=== PATIENT | female | born 1965 | race Caucasian/White ===

== ENCOUNTER 2018-06-02 10:55 | Emergency (ER) | payer BC ==
--- OUTSIDE RECORDS SUMMARY | 2018-06-02 11:18 | XMS REPORT | Continuity of Care Document ---
:1965 External Reference #:[id number] Author Name BerryNicol perrin Care Team Providers Name Role Phone Yonis Ellsworth MD Primary Care Physician Unavailable Payers Date Identification Numbers Payment Provider Subscriber Policy Number: [id number] [employer] Riya Veloz PayID: [id number] [address] [address] [place] [address] Advance Directives Description No Information Available Problems Description No Information Family History Date Family Member(s) Observation Comments General Asthma Father Gout Father Coronary Artery Disease (CAD) Father GA Mother due to brain bleed () Mother Arthritis Mother Arthritis, Osteo Mother Hyperthyroidism Mother Stroke Mother GA Siblings 3 3 sisters, arthritis, endometriosis, cerebral palsy Social History Type Date Description Comments Sex Unknown Marital Status Single Lives With Daughters Occupation Currently Working [employer] ETOH Use Occasionally consumes alcohol Tobacco Use Start: Unknown Patient is a former End: Unknown smoker Recreational Drug Use Denies Drug Use Smoking Status Reviewed: 05/14/18 Patient is a former smoker Exercise Type/Frequency Exercises sporadically walking Allergies, Adverse Reactions, Alerts Date Description Reaction Status Severity Comments 12/15/2017 NSAIDS Active facial swelling 12/15/2017 Depo-Provera Active hives 12/15/2017 Aspirin Active facial swelling Medications Medication Date Status Form Strength Qnty SIG Indications Ordering Provider Heel Liners 02/13/ Active Pads Please 2017 provide heel Effie, and ankle M.D. support Tizanidine HCL 02/13/ Active Capsules 2mg 30cap 1 or 2 cap by 2017 s mouth as Effie, needed at M.D. night for spasms [id number] 12/19/ Active Chewtabs 1mg 90uni take one 2017 ts capsule/table Effie, t daily M.DPeggy sublingually Advair Diskus / Active Aerosol 100-50mcg inhale one Unknown 0000 /Dose puff by mouth twice a day Venlafaxine HCL / Active Caps ER 75mg 1 by mouth Unknown ER 0000 24HR every day Butalbital/Acet / Active Capsules 50-325-40 take 1 Unknown aminophen/Caffe 0000 mg capsule as ine needed for bad migraine n mdd 1 Tramadol HCL / Active Tablets 50mg 1-2 tablets Unknown 0000 by mouth every 6 hours as needed pain Ventolin HFA / Active Aerosol 108(90Bas 2 puffs by Unknown 0000 e) mouth four mcg/Act times a day as needed Desloratadine / Hx Tablets 5mg 1 by mouth Unknown 0000 - every day 2017 Montelukast / Hx Tablets 10mg 1 by mouth Unknown Sodium 0000 - every day 2017 Ventolin HFA / Hx Aerosol 108(90Bas 2 puffs by Unknown 0000 - e) mouth four 12/15/ mcg/Act times a day 2018 as needed Nortriptyline / Hx Capsules 25mg one/hs Unknown HCL 0000 - 2017 Medications Administered in Office Medication Date Status Form Strength Qnty SIG Indications Ordering Provider Injection 03/30 Administered Injection Nurse Visit [facility] Endocrinology 0.25MG Immunizations CPT Code Status Date Vaccine Lot # [id number] Given 03/28/2017 Pneumonia Vaccine Vital Signs Date Vital Result Comment 05/14/2018 11:01am Height 59 inches 4'11" Weight 164.00 lb Heart Rate 88 /min BP Systolic Sitting 136 mmHg BP Diastolic Sitting 78 mmHg Pain Level 6 O2 % BldC Oximetry 96 % BMI (Body Mass Index) 33.1 kg/m2 03/13/2018 9:37am Height 59 inches 4'11" Weight 177.00 lb Heart Rate 84 /min BP Systolic Sitting 112 mmHg Rue regular cuff BP Diastolic Sitting 78 mmHg Rue regular cuff Respiratory Rate 12 /min O2 % BldC Oximetry 96 % BMI (Body Mass Index) 35.7 kg/m2 Neck Circumference in inches 14.5 03/12/2018 1:38pm Height 59 inches 4'11" Weight 172.00 lb w/ shoes Heart Rate 107 /min BP Systolic Sitting 133 mmHg BP Diastolic Sitting 85 mmHg BMI (Body Mass Index) 34.7 kg/m2 02/13/2018 9:49am Height 59 inches 4'11" Weight 173.50 lb Heart Rate 61 /min BP Systolic Sitting 130 mmHg BP Diastolic Sitting 80 mmHg Pain Level 6 O2 % BldC Oximetry 97 % BMI (Body Mass Index) 35.0 kg/m2 12/15/2017 12:57pm Height 59 inches 4'11" Weight 176.25 lb Heart Rate 60 /min BP Systolic Sitting 132 mmHg BP Diastolic Sitting 80 mmHg Respiratory Rate 14 /min Pain Level 4 BMI (Body Mass Index) 35.6 kg/m2 Results Test Date Facility Test Result H/L Range Note Laboratory test 03/30/2018 [facility] Cortisol 29.24 g/dL 1 [place] [address] [phone] Laboratory test 03/30/2018 [facility] Cortisol 11.48 g/dL 2, 3 [place] [address] [phone] Laboratory test 03/12/2018 [facility] TSH (Thyroid 1.23 mcIU/mL N 0.34-5.60 finding [facility] Stim Horm) [place] [address] [phone] Free T4 (Free Thyroxine) 0.75 ng/dL N 0.61-1.12 T3 Free 3.10 pg/mL N 2.5-3.9 Cortisol 3.30 g/dL 4 FSH And LH 03/12/2018 [facility] FSH (Follicle Stim 65.3 mIU/mL 5 [facility] Hormone) [place] [address] [phone] LH (Lutenizing Hormone) 23.9 mIU/mL 6 Ssa/SSB Abs Igg 12/16/2017 [facility] SS-A/Ro Antibody <0.2 U 7 [place] [address] [phone] SS-B/La Antibody <0.2 U 8 Laboratory test 12/16/2017 [facility] Centromere Auto Abs 0.3 U 9 [place] [address] [phone] Celiac Panel 12/16/2017 [facility] Tissue <1.2 U/mL [address] [place] [address] Ab [phone] Immunoglobulin A 279 mg/dL 61 - 356 Celiac Interpretation See Comment 11 Celiac Hla 12/16/2017 [facility] Hla-Dqa1 SEE BELOW [address] [place] [address] [phone] Hla-DQB1 SEE BELOW 13 Celiac Gene Pairs Present? No Celiac Gene Interpretation See Comment 14 Hla B27 12/16/2017 [facility] Hla B27 Negative [address] [place] [address] [phone] Hla B27 Interp See Comment 16 Laboratory test 12/16/2017 [facility] Erythrocyte Sed 23 mm/Hr N 0-[address] [place] [address] [phone] C Reactive Protein 6.12 mg/L N <8.01 Vitamin B12 And 12/16/2017 [facility] Vitamin B12 267 pg/mL N 180-914 [address] [place] [address] [phone] Folic Acid (Folate) 11.44 ng/mL >3.99 Laboratory test 12/16/2017 [facility] TSH (Thyroid 1.33 mcIU/mL N 0.34-5.[address] Stim Horm) [place] [address] [phone] Thyroperoxidase AB 317.50 IU/mL High <9 Nuclear AB (Brielle) By Ifa Igg <1:80 (Negative) 18 Cyclic Citrullinated Pep Igg <15.6 U 19 Rheumatoid Factor < 10 IU/mL N <15 Creatine Kinase(CK) 110 U/L N 10-223 Ferritin 42.7 ng/mL N 11-307 Magnesium 2.1 mg/dL N 1.9-2.7 1 AM 8.7-22.4 PM <10 2 BASELINE FASTING 3 AM 8.7-22.4 PM <10 4 AM 8.7-22.4 PM <10 5 Normally menstruating females - Follicular phase 3 - 9 - Mid-cycle peak 4 - 23 - Luteal phase 1 - 6 Postmenopausal females 16 - 114 6 Normally menstruating females - Follicular Phase 1 - 18 - Mid-Cycle Peak 24 - 105 - Luteal Phase 0.6 - 20 Postmenopausal females 15 - 62 7 REFERENCE VALUE <1.0 (Negative) 8 REFERENCE VALUE <1.0 (Negative) Test Performed by: [facility] - [address] [address] 9 REFERENCE VALUE <1.0 (Negative) Test Performed by: [facility] - [address] [address] 10 REFERENCE VALUE <4.0 (Negative) Test Performed by: [place] [id number] Negative serology. Celiac disease unlikely. However, approximately 10% of patients with celiac disease are seronegative. Also, patients who are already adhering to a gluten-free diet may be seronegative. If celiac disease is highly clinically suspected, consider HLA-DQ typing. Test Performed by: [facility] - [address] [address] 12 RESULT: ,05 REFERENCE VALUE Not Applicable 13 RESULT: 03:01,03:01 DQ Serologic Equivalent: 7,7 REFERENCE VALUE Not Applicable 14 The absence of HLA celiac permissive genes would make the presence of celiac disease unlikely. ADDITIONAL INFORMATION Method: Molecular typing of HLA antigens performed using reverse SSOP and/or SSP methods, reported as serological equivalents and low to medium resolution molecular values. Performing Laboratory CLIA# [id number] Test Performed by: [address] [address] 15 REFERENCE VALUE Not Applicable 16 RESULT: HLA-B27 antigen was not detected. ADDITIONAL INFORMATION Method: Flow Cytometry Performing Laboratory CLIA# [id number] Test Performed by: [address] [address] 17 Normal Range 180 to 914 Indeterminate Range 145 to 180 Deficient Range <145 18 <1:80 (Negative) REFERENCE VALUE <1:80 (Negative) Test Performed by: [facility] - [address] [address] 19 REFERENCE VALUE <20.0 (Negative) Test Performed by: [address] [address] Procedures Date Code Description Status 03/30/2018 94191 Admin Of Inj Completed 03/13/2018 69013 Sleep Study Unattended,HRT Rate,Oxygen Sat,Resp Completed Effort/Airflow 09/22/2013 34847 Holter Monitor Review (24 hr)dr colón & jones only Completed Encounters Type Date Location Provider Dx Diagnosis Office Visit 03/13/2018 [facility] Fidelia Zhou MD R06.83 Snoring 10:00a [facility] R53.83 Other fatigue Z68.35 Body mass index (BMI) 35.0-35.9, adult Office Visit 03/12/2018 2:00p [facility], 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 unspecified E53.8 Deficiency of other specified B group vitamins M54.5 Low back pain R20.8 Other disturbances of skin sensation Office 12/15/2017 Rheumatology Darvin M35.01 Sicca syndrome with Visit 1:00p [facility] keratoconjunctivitis Tae M54.5 Low back pain R25.2 Cramp and spasm R20.8 Other disturbances of skin sensation R06.83 Snoring Plan of Treatment Future Appointment(s):11/16/2018 9:40 am - Darvin Chou M.D. at [facility]05/14/2018 - Darvin Chou M.D.R53.83 Other idkbjqeQ90.5 Low back painE06.3 Autoimmune ywespqzvbsqS56.8 Deficiency of other specified B group vitaminsFollow up:Follow up in 6 to 9 moths or sooner if needed
[2018-06-02 11:32] VITALS: BP 146/93
[2018-06-02] MEDS ORDERED: Tetan/Diph/Pertus SYR(Tdap)* 0.5 ML SYR(BOOSTRIX) use SYR IM ONE (11:33)
--- NOTE | 2018-06-02 11:41 | UC ---
Laceration HPI - HPI Summary HPI Summary: 52 yo female presents with laceration to right index finger. She tells me that earlier this morning a travel mug had a metal top on it and it broke and pt sustained a laceration to her right index finger. She bandaged the area and came to . Unsure date of last tetanus - History Of Current Complaint Chief Complaint: UCLaceration Stated Complaint: FINGER LAC Time Seen by Provider: 06/02/18 11:40 Hx Obtained From: Patient Hx Last Menstrual Period: January Laceration Location: Finger Mechanism Of Injury: Sharp Trauma Onset/Duration: Sudden Onset Severity: Mild Pain Intensity: 4 Pain Scale Used: 0-10 Numeric - Allergies/Home Medications Allergies/Adverse Reactions: Allergies Allergy/AdvReac Type Severity Reaction Status Date / Time aspirin Allergy Hives Verified 06/02/18 11:24 ibuprofen Allergy Hives Verified 06/02/18 11:24 milk AdvReac Intermediate Vomiting Uncoded 09/07/15 14:14 Home Medications: Home Medications Butalb/Acetamin/Caff TAB* [Fioricet TAB*] 1 tab PO Q6H PRN 06/02/18 [History Confirmed 06/02/18] PMH/Surg Hx/FS Hx/Imm Hx Respiratory History: Asthma Neurological History: Migraine Psychological History: Anxiety - Surgical History Surgical History: Yes Surgery Procedure, Year, and Place: 2003 tubal ligation. gallbladder 2017 - Family History Known Family History: Positive: None - Social History Occupation: Employed Full-time Lives: With Family Alcohol Use: None Substance Use Type: None Smoking Status (MU): Never Smoked Tobacco Review of Systems All Other Systems Reviewed And Are Negative: Yes Constitutional: Positive: Negative Skin: Positive: Other - right index finger laceration Respiratory: Positive: Negative Cardiovascular: Positive: Negative Neurovascular: Positive: Negative Neurological: Positive: Negative Psychological: Positive: Negative Physical Exam - Summary Physical Exam Summary: GENERAL: NAD. WDWN. No pain distress. SKIN: RIGHT INDEX FINGER: pad with 5mm linear superficial laceration. Well approximated at rest. Clean wound. CHEST: No accessory muscle use. Breathing comfortably and in no distress. CV: Pulses intact. Cap refill <2seconds NEURO: Alert. PSYCH: Age appropriate behavior. Triage Information Reviewed: Yes Vital Signs: Initial Vital Signs Temp 97.6 F 06/02/18 11:27 Pulse 94 06/02/18 11:27 Resp 20 06/02/18 11:27 BP 146/93 06/02/18 11:27 Pulse Ox 99 06/02/18 11:27 Vital Signs Reviewed: Yes Laceration Repair - Laceration Repair 1 Description: Linear Laceration Size After Repair: Length (cm) - 0.5 Cleansing Completed Via Routine Prep: Yes Closure Material: Skin Adhesive Laceration Course/Dx - Course/Dx Course Of Treatment: Wound was cleansed with NS. Dermabond applied as wound was well approximated at rest. Bandaged with band-aid. tdap updated today. - Diagnosis Provider Diagnosis: Laceration of right index finger Discharge - Sign-Out/Discharge Documenting (check all that apply): Patient Departure All imaging exams completed and their final reports reviewed: No Studies - Discharge Plan Condition: Stable Disposition: HOME Patient Education Materials: Skin Adhesive Care (ED) Referrals: Yonis Ellsworth MD [Primary Care Provider] - Additional Instructions: If you develop a fever, shortness of breath, chest pain, new or worsening symptoms - please call your PCP or go to the ED. Your blood pressure was high at todays visit. Please see your primary provider within 4 weeks for recheck and re-evaluation. Apply a band-aid until well healed (likely 2-3 days) - Billing Disposition and Condition Condition: STABLE Disposition: Home
== END 2018-06-02 12:24 | disposition home or self-care (01) ==
LOC: UCEAST 10:55
DX: S61.210A Laceration without foreign body of right index finger without damage to nail, initial encounter (principal); W26.8XXA Contact with other sharp object(s), not elsewhere classified, initial encounter; Y92.9 Unspecified place or not applicable; Z23 Encounter for immunization; J45.909 Unspecified asthma, uncomplicated; G43.909 Migraine, unspecified, not intractable, without status migrainosus; F41.9 Anxiety disorder, unspecified; Z88.6 Allergy status to analgesic agent; Z91.011 Allergy to milk products
CPT/HCPCS: 12001; 90471; 90715; 99211; 99212; G0463